=== PATIENT | male | born 1955 | race Caucasian/White ===

== ENCOUNTER → 2017-10-26 | Outpatient (CLI) | payer BC ==
[~2017-10-26] MED LIST: ASPIRIN 32325 MG/TAB PO; TOPROL XL 50MG50 MG PO
== END ==
LOC: COL.RAD 09:45
DX: N50.89 Other specified disorders of the male genital organs (principal); M79.89 Other specified soft tissue disorders; Z98.890 Other specified postprocedural states

== ENCOUNTER 2017-12-05 10:54 | Day surgery (SDC) | payer BC ==
[2017-12-05] VITALS (11 sets, daily range): BP systolic 99–132; BP diastolic 71–96; PULSE 79–102; TEMP 97.4–98.1
[~2017-12-05] VITALS: Ht 175.3 cm; Wt 116.4 kg
[2017-12-05] MEDS ORDERED: TOPROL XL 25MG25 MG PO (11:15)
[2017-12-06 03:56] VITALS: BP 114/61; PULSE 91; TEMP 97.2
[2017-12-06 07:32] VITALS: BP 123/72; PULSE 87; TEMP 98.9
[2017-12-06 10:03] VITALS: BP 113/68; PULSE 93; TEMP 98.5
[2017-12-06 11:21] VITALS: BP 123/67; PULSE 94; TEMP 97.6
[2017-12-06 11:51] LABS: BASO % 0.1 % (0.0-2.0); GRAN # 15.5 (1.4-6.5); GRAN % 81.1 % (42.2-75.2); HEMATOCRIT 40.9 % (42.0-52.0); LYMPH # 2.3 (1.2-3.4); LYMPH % 12.2 % (20.0-51.0); MEAN CELL VOLUME 82 fl (80.0-100.0); MEAN CORPUSCULAR HEMOGLOBIN 28 pg (27.0-31.0); MEAN CORPUSCULAR HGB CONC 34 g/dl (33.0-37.0); MEAN PLATELET VOLUME 9.1 fl (7.4-10.4); MONO # 1.2 (0.1-0.6); PLATELET COUNT 289 K/mm3 (130-400); REDCELL DISTRIBUTION WIDTH-CV 13.6 % (11.5-14.5)
[2017-12-06 11:59] LABS: ALBUMIN 3.5 gm/dL (3.5-5.0); BILIRUBIN,TOTAL 0.4 mg/dL (0.0-1.0); CALCIUM 8.7 mg/dL (8.4-10.2); CREATININE, serum 0.96 mg/dL (0.66-1.25); POTASSIUM 4.2 mmol/L (3.4-5.0); TOTAL PROTEIN 6.7 gm/dL (6.4-8.2)
[2017-12-06 12:30] LABS: TSH w REFLEX 0.309 uIU/mL (0.465-4.680)
[2017-12-06 15:51] VITALS: BP 102/43; PULSE 59; TEMP 99.1
== END 2017-12-06 16:40 | disposition home health service (06) ==
LOC: SDCO 10:54 → SURG 16:00 → SDCO 12-06 16:40
PROVIDERS: Physician Assistant
DX: N40.0 Benign prostatic hyperplasia without lower urinary tract symptoms (principal); I48.0 Paroxysmal atrial fibrillation; R94.6 Abnormal results of thyroid function studies; D72.829 Elevated white blood cell count, unspecified; Z79.82 Long term (current) use of aspirin; Z79.899 Other long term (current) drug therapy
CPT/HCPCS: OP; 99204; J0690; J1100; J2370; J2405; J2704; J3010; J7120

== ENCOUNTER → 2018-04-09 | Outpatient (CLI) | payer BC ==
[~2018-04-09] MED LIST changes: +TOPROL XL 25MG25 MG PO
== END ==
LOC: COL.RAD 10:30
DX: N43.0 Encysted hydrocele (principal); K86.89 Other specified diseases of pancreas